=== PATIENT | female | born 2000 | race Caucasian/White ===

== ENCOUNTER 2022-02-04 18:47 | Observation (INO) ==
[2022-02-04] MEDS ORDERED: methylPREDNISolone 125 MG/2 ML VIAL IV STA (19:06)
[2022-02-04] MEDS ORDERED: SODIUM CHLORIDE 0.9% 1000ML 2,000 ML IV ONE (19:06)
[2022-02-04] MEDS ORDERED: FAMOTIDINE 20MG IV PUSH 20 MG/5 ML SYR IV STA (19:06)
[2022-02-04] MEDS ORDERED: diphenhydrAMINE 50 MG/ML VIAL IV STA (19:06)
[2022-02-04] MEDS ORDERED: cefTRIAXone SODIUM 2,000 MG/70 ML BAG IV STA (19:10)
--- NOTE | 2022-02-04 19:11 | Emergency Department Note ---
Impression & Plan Cough, Rash, Fever, Tachycardia ED Provider Note NAME: REANNA SANTOYO AGE: 21 SEX: F : 2000 ARRIVES VIA: Walk-In INFORMANT: Patient ED PROVIDER(S): Jose Alfredo Davis DO CHIEF COMPLAINT: cough, fever and rash HPI: Patient is a 21-year-old female who presents to the ER for cough, rash and fevers of 104. Symptoms started within the past 24 hours. Notes has had a rash under the right arm which has been present for over a week but in the past 24 hours noticed rash of the left breast and entire anterior abdominal wall. Notes it is warm and painful but not itchy. No headache or change in vision. No chest pain or shortness of breath. No nausea, vomiting, or diarrhea. No dysuria, urgency, or frequency. No other exacerbating remitting factors. ROS: See above HPI for pertinent positives & negatives. A total of 10 systems reviewed and were otherwise negative. PAST MEDICAL HISTORY:See Below PAST SURGICAL HISTORY:See Below FAMILY HISTORY:See Below SOCIAL HISTORY:See Below HOME MEDICATIONS:See Below ALLERGIES:See Below VITALS:See Below PHYSICAL EXAMINATION: GENERAL: Sitting up in bed, alert, well appearing, well nourished, no distress, non-toxic EYE EXAM: normal conjunctiva. PERRL and EOM's grossly intact. OROPHARYNX: no exudate, no erythema, lips, buccal mucosa, and tongue normal and mucous membranes are moist NECK: supple, no nuchal rigidity, no adenopathy, non-tender LUNGS: Clear to auscultation. Normal chest wall mechanics HEART: no murmurs, S1 normal and S2 normal ABDOMEN: abdomen soft, non-tender, normo-active bowel sounds, no masses, no rebound or guarding. SKIN: Diffuse erythema which is raised warm and tender on the anterior abdominal chest wall UPPER EXTREMITIES: upper extremities are grossly normal. LOWER EXTREMITIES: No pitting edema. NEURO EXAM: Normal sensorium, cranial nerves II-XII grossly intact, normal speech, no gross weakness of arms, no gross weakness of legs. MEDICAL DECISION MAKING: Patient is a 21-year-old female who transition to a male who presents to the ER for fevers, cough and a rash. Denies any congestion, runny nose, or sore throat. No belly pain, dysuria, urgency, or frequency. Admits to a red warm and tender rash on the abdomen. IV was established blood work was obtained. Patient was febrile and tachycardic. Labs show leukocytosis of 13,000. No sign ificant anemia. BMP with mild hypokalemia 3.1. LFTs were unremarkable. T bili mildly elevated 2.5 but no abdominal pain. Lipase was normal. COVID influenza and RSV were negative. On exam she does have a erythematous warm and tender rash in the abdomen. Initially gave steroids, Benadryl, and Pepcid in case this is allergic. No significant improvement. Did cover with IV Rocephin and Dapto. Patient was given IV fluids. Updated bedside. Discussed with hospitalist for further evaluation as this could be a cellulitis although clinically appears to be much more raised than a typical cellulitis. Triage Nursing notes reviewed. Limited review of prior medical records performed Vital Signs: reviewed and remarkable for tachycardic and febrile Differential diagnosis: Differential diagnosis: Etiologies such as viral syndrome, otitis, pharyngitis, pneumonia, influenza, meningitis, urinary tract infection, sepsis, bacteremia, as well as others were entertained. ER treatment provided: See below Diagnostics interpreted by me: ECG: none Cardiac Monitoring: An order was placed for continuous cardiac monitoring. The monitor shows a rate of 110 with sinus rhythm. Laboratory studies: As stated above and show below. Imaging studies: Portable AP upright 1 view of the chest was unremarkable Consultation(s): Discussed with Carlos Carmichael for further evaluation Procedures: none Past Med/Surg History Medical History Allergic rhinitis Chronic sinusitis Environmental allergies Hx of pancreatitis Idiopathic pancreatitis Moderate persistent asthma Paroxysmal nocturnal dyspnea Surgical History H/O mastectomy History of nasal cauterization History of tonsillectomy and adenoidectomy Hx of wisdom tooth extraction Family History Denies family history of Crohn's disease Colorectal cancer Ulcerative colitis Social History Smoking Status: Current some day smoker Hx Alcohol Use: Yes Hx Substance Use: Yes Prescribed Medications: Former Misuse of Rx Meds Preferred Language: Korean Feels Safe at Home: Yes Gender Identity: Nonbinary Allergies Allergies Allergy/AdvReac Type Severity Reaction Status Date / Time coconut Allergy Intermediate HIVES/ABD Verified 02/04/22 20:28 PAIN grapefruit Allergy Intermediate HIVES/ABD Verified 02/04/22 20:28 PAIN marshall AdvReac Intermediate Vomiting Verified 02/04/22 20:28 Home Meds Home Medications Medication Instructions Recorded Confirmed dextroamphetamine-amphetamine ER 30 mg PO QAM 11/07/19 02/04/22 30 mg 24hr capsule,extend release testosterone cypionate 100 mg/mL 100 mg subcut Q7D 03/11/21 02/04/22 intramuscular oil sertraline 25 mg tablet 50 mg PO DAILY 10/25/21 02/04/22 acetaminophen 500 mg tablet 1,000 mg PO DIRECTED PRN 02/04/22 02/04/22 (Tylenol Extra Strength) PAIN/FEVER ibuprofen 200 mg tablet 400 mg PO DIRECTED PRN 02/04/22 02/04/22 PAIN/FEVER Previous Rx's Medication Instructions Recorded linaclotide 72 mcg capsule 72 mcg PO DAILY #30 caps 10/25/21 (Linzess) pantoprazole 40 mg tablet,delayed 40 mg PO DAILY #30 tabs 10/25/21 release plecanatide 3 mg tablet (Trulance) 3 mg PO DAILY #30 tabs 11/28/21 albuterol sulfate 90 mcg/actuation 2 puff inhalation Q6H PRN Cough 11/29/21 aerosol inhaler (Ventolin HFA) #8.5 grams budesonide-formoterol HFA 80 2 puff inhalation BID #10.2 grams 11/29/21 mcg-4.5 mcg/actuation aerosol inhaler (Symbicort) montelukast 10 mg tablet 10 mg PO DAILY #90 tabs 11/29/21 Results & Data (ED) Vital Signs Vital Signs - 24 hr 02/04/22 18:53 02/04/22 19:21 02/04/22 19:21 Temperature 37.8 C H Temperature Source Temporal Artery Scan Pulse Rate 144 H Pulse Rate [Apical] 128 H Pulse Rhythm [Apical] Regular Respiratory Rate 20 17 Respiratory Depth Normal Blood Pressure 119/64 Blood Pressure [Right Arm] 159/95 H Blood Pressure Mean 82 Blood Pressure Mean [Right Arm] 116 Blood Pressure Position Sitting Pulse Oximetry 99 96 Oxygen Delivery Method Room Air Room Air Room Air Sepsis Recent Fever Within 48 Hours No Sepsis New/Unexplained Change in Mental Status N/A Sepsis Action Taken by Nursing No Action Required 02/04/22 20:00 02/04/22 20:30 Temperature Temperature Source Pulse Rate Pulse Rate [Apical] 108 H 115 H Pulse Rhythm [Apical] Regular Respiratory Rate 20 16 Respiratory Depth Normal Blood Pressure Blood Pressure [Right Arm] 149/85 H 117/88 Blood Pressure Mean Blood Pressure Mean [Right Arm] 106 97 Blood Pressure Position Pulse Oximetry 98 99 Oxygen Delivery Method Room Air Room Air Sepsis Recent Fever Within 48 Hours Sepsis New/Unexplained Change in Mental Status Sepsis Action Taken by Nursing Laboratory Data Result diagrams: 02/04/22 19:15 02/04/22 19:15 Lab Results 02/04/22 02/04/22 02/04/22 Range/Units 19:15 19:15 19:25 WBC 13.33 H (4.8-10.8) K/ul RBC 4.26 (3.93-5.22) M/uL Hgb 12.8 (12.0-16.0) g/dl Hct 35.6 (34.1-44.9) % MCV 83.6 (80.0-100.0) fL MCH 30.0 (25.0-34.0) pg MCHC 36.0 (32.0-36.0) g/dL RDW Std Deviation 38.8 (36.4-46.3) fL RDW Coeff of Charleen 12.8 (11.5-14.5) % Plt Count 251 (130-400) K/uL MPV 8.9 L (9.4-12.3) fL Immature Gran % (Auto) 0.5 % Neut % (Auto) 84.9 % Lymph % (Auto) 8.6 % [place] % (Auto) 5.8 % Eos % (Auto) 0.0 % Baso % (Auto) 0.2 % Neut # (Auto) 11.32 H (1.4-6.5) K/uL Lymph # (Auto) 1.15 L (1.2-3.4) K/uL [place] # (Auto) 0.77 (0.24-0.82) K/uL Eos # (Auto) 0.00 (0-0.50) K/uL Baso # (Auto) 0.03 (0-0.2) K/uL Immature Gran # (Auto) 0.06 H (0.00-0.02) K/uL Sodium 133 L (136-145) mmol/L Potassium 3.1 L (3.5-5.1) mmol/L Chloride 100 (98-107) mmol/L Carbon Dioxide 23 (21-32) mmol/L Anion Gap 10 (3-11) BUN 16 (6-23) mg/dl Creatinine 0.87 (0.6-1.2) mg/dl Est Cr Clr Drug Dosing Not Reportable Est GFR ( Amer) 110.4 ml/min Est GFR (Non-Af Amer) 95.2 ml/min BUN/Creatinine Ratio 18.4 (10-20) Glucose 105 H (70-99(Fasting)) mg/dl Calcium 8.6 (8.5-10.1) mg/dl Total Bilirubin 2.5 H (0.2-1.0) mg/dl AST 11 L (13-39) U/L ALT 16 (7-52) U/L Alkaline Phosphatase 60 (34-104) U/L Troponin I High Sens 4.6 (0-14) pg/ml Total Protein 7.0 (6.0-8.3) gm/dl Albumin 4.3 (3.4-5.0) gm/dl Globulin 2.7 (2.5-4.0) gm/dl Albumin/Globulin Ratio 1.6 (0.9-2) Lipase 9 L (11-82) U/L SARS-CoV-2 (PCR) NEGATIVE (Negative) Influenza Type A (PCR) Negative (Neg) Influenza Type B (PCR) Negative (Neg) RSV (RT-PCR) Negative (Neg) Administered Medications Discontinued Medications Acetaminophen (Acetaminophen 325 Mg Tab) 650 mg PO NOW STA Stop: 02/04/22 20:48 Last Admin: 02/04/22 20:57 Dose: 650 mg Documented By: BS Diphenhydramine HCl (Diphenhydramine 50 Mg/Ml Vial) 50 mg IV NOW STA Stop: 02/04/22 19:07 Last Admin: 02/04/22 19:20 Dose: 50 mg Documented By: EMB Sodium Chloride (Nss 1000ml) 2,000 mls @ 999 mls/hr IV .Q2H1M ONE Stop: 02/04/22 21:06 Last Admin: 02/04/22 19:20 Dose: 999 mls/hr Documented By: EMB Famotidine (Pepcid 20mg Iv Push) 20 mg in 5 mls @ 2.5 mls/min IV NOW STA Stop: 02/04/22 19:07 Last Admin: 02/04/22 19:20 Dose: 2.5 mls/min Documented By: EMB Ceftriaxone Sodium (Rocephin) 2,000 mg in 70 mls @ 140 mls/hr IV NOW STA Stop: 02/04/22 19:39 Last Infusion: 02/04/22 19:58 Dose: 0 mls/hr Documented By: Admin: 02/04/22 19:25 Dose: 140 mls/hr Documented By: EMB Methylprednisolone (Methylprednisolone 125 Mg/2 Ml Vial) 60 mg IV NOW STA Stop: 02/04/22 19:07 Last Admin: 02/04/22 19:20 Dose: 60 mg Documented By: EMB Imaging Data Radiologist's Impression: Chest X-Ray 02/04/22 19:06 XR chest 1V portable CLINICAL HISTORY: Chest pain, nonspecific COMPARISON STUDY: Chest radiograph December 06, 2021. FINDINGS: Lung volumes are normal. Lungs are clear. There is no pneumothorax or pleural effusion. Cardiac size is normal. Mediastinal contours are normal. There is no evidence for pulmonary edema. IMPRESSION: No acute cardiopulmonary findings. ACT 112: Negative or not required by law. Electronically signed by: Reanna Wilkinson M.D. 02/04/2022 8:31 PM Discharge Plan Visit Data Chief Complaint: Fever Stated Complaint: FEVER ED Provider: Jose Alfredo Davis Discharge Problem: Cough, Rash, Fever, Tachycardia Forms Stand Alone Forms: [facility] Prescriptions Prescriptions: No Action budesonide-formoterol [Symbicort] 80-4.5 mcg/actuation HFA aerosol inhaler 2 puff inhalation BID Qty: 10.2 3RF albuterol sulfate [Ventolin HFA] 90 mcg/actuation HFA aerosol inhaler 2 puff inhalation Q6H PRN (Reason: Cough) Qty: 8.5 3RF montelukast 10 mg tablet 10 mg PO DAILY Qty: 90 4RF Trulance 3 mg tablet 3 mg PO DAILY Qty: 30 2RF testosterone cypionate 100 mg/mL oil 100 mg subcut Q7D Rx Instructions: ON HOLD sertraline 25 mg tablet 50 mg PO DAILY pantoprazole 40 mg tablet,delayed release (DR/EC) 40 mg PO DAILY Qty: 30 2RF Linzess 72 mcg capsule 72 mcg PO DAILY Qty: 30 2RF dextroamphetamine-amphetamine 30 mg capsule,extended release 24hr 30 mg PO QAM acetaminophen [Tylenol Extra Strength] 500 mg Tablet 1,000 mg PO DIRECTED PRN (Reason: PAIN/FEVER) ibuprofen 200 mg Tablet 400 mg PO DIRECTED PRN (Reason: PAIN/FEVER) Referrals [facility] [Non-Staff] -
[2022-02-04 19:51] LABS: Basophils # (auto) 0.03 K/uL (0-0.2); Basophils % (auto) 0.2 %; Hematocrit (blood only) 35.6 % (34.1-44.9); Hemoglobin 12.8 g/dl (12.0-16.0); Immature Granulocytes # (auto) 0.06 K/uL (0.00-0.02); Immature Granulocytes % (auto) 0.5 %; Lymphocytes # (auto) 1.15 K/uL (1.2-3.4); Lymphocytes % (auto) 8.6 %; Mean Corpuscular Volume 83.6 fL (80.0-100.0); Mean Platelet Volume 8.9 fL (9.4-12.3); Monocytes # (auto) 0.77 K/uL (0.24-0.82); Monocytes % (auto) 5.8 %; Neutrophils # (auto) 11.32 K/uL (1.4-6.5); Neutrophils % (auto) 84.9 %; Platelet Count 251 K/uL (130-400); RDW Coefficient of Variation 12.8 % (11.5-14.5); RDW Standard Deviation 38.8 fL (36.4-46.3); Red Blood Count 4.26 M/uL (3.93-5.22); White Blood Count 13.33 K/ul (4.8-10.8)
[2022-02-04 20:16] LABS: Alanine Aminotransferase 16 U/L (7-52); Albumin Globulin Ratio 1.6 (0.9-2); Albumin Level 4.3 gm/dl (3.4-5.0); Alkaline Phosphatase 60 U/L (34-104); Anion Gap 10 (3-11); Aspartate Aminotransferase 11 U/L (13-39); BUN Creatinine Ratio 18.4 (10-20); Bilirubin,Total 2.5 mg/dl (0.2-1.0); Blood Urea Nitrogen 16 mg/dl (6-23); Calcium 8.6 mg/dl (8.5-10.1); Carbon Dioxide 23 mmol/L (21-32); Chloride 100 mmol/L (98-107); Est GFR (African American) 110.4 ml/min; Est GFR (Non-African American) 95.2 ml/min; Globulin 2.7 gm/dl (2.5-4.0); Glucose 105 mg/dl (70-99(Fasting)); Lipase 9 U/L (11-82); Potassium 3.1 mmol/L (3.5-5.1); Sodium 133 mmol/L (136-145)
[2022-02-04 20:17] LABS: Troponin I High Sensitivity 4.6 pg/ml (0-14)
[2022-02-04 20:29] LABS: Influenza A virus by PCR Negative (Neg); Influenza B virus by PCR Negative (Neg); RSV by PCR Negative (Neg); SARS CoV2 RNA(COVID-19) Ceph NEGATIVE (Negative)
--- NOTE | 2022-02-04 20:32 | XRay Report ---
XR chest 1V portable CLINICAL HISTORY: Chest pain, nonspecific COMPARISON STUDY: Chest radiograph December 06, 2021. FINDINGS: Lung volumes are normal. Lungs are clear. There is no pneumothorax or pleural effusion. Car diac size is normal. Mediastinal contours are normal. There is no evidence for pulmonary edema. IMPRESSION: No acute cardiopulmonary findings. ACT 112: Negative or not required by law. Electronically signed by: Refugio Wilkinson M.D. 02/04/2022 8:31 PM
[2022-02-04] MEDS ORDERED: DAPTOMYCIN IV SCH (20:45)
[2022-02-04] MEDS ORDERED: ACETAMINOPHEN 325 MG TAB PO STA (20:47)
--- NOTE | 2022-02-04 21:16 | History & Physical Report ---
Date of Service February 04, 2022 Assessment & Plan (1) Rash: Plan: 21-year-old transmale who presented due to rash and fever. Rash Starting in right underarm for about 1 to 2 months with spread to abdomen as of the last week Right underarm with erythema, but does exhibit some scaliness and thickening abdomen appears more urticarial in nature Ultimately believed that he will require biopsy for further differentiation Due to several spots of honey colored crusting will continue daptomycin and ceftriaxone for now MRSA nares ordered and pending, can consider discontinuation of daptomycin if negative Will start famotidine 20 mg twice daily for H2 blockade and Benadryl 50 mg as needed as concern for possible allergic rash remains Admit to [facility] Fever/leukocytosis Symptoms of fever, nausea, fatigue concerning for possible viral infection However, blood cultures drawn and pending from the ED follow results Acetaminophen as needed for fever Zofran as needed for nausea Depression/anxiety Continue home sertraline Asthma/allergic rhinitis Continue home montelukast and Symbicort inhaler Albuterol as needed GERD/constipation Continue home pantoprazole and linaclotide/plecanatide Transitioning male Of note, patient has been off testosterone supplementation since around December due to unavailability of treatment through prior provider Diet: Regular Dispo: [facility] DVT prophylaxis: No chemoprophylaxis due to young age and mobility CODE STATUS: Full (2) Fever: (3) Cough: History of Present Illness Primary Care Provider: NO PCP Refugio Miller is a 21-year-old transmale who presented to the emergency room due to a rash and fever. He states the rash started on his right underarm about a month or so ago. However, as of the past week the rash has been spreading to the abdominal area. It now involves the entire abdomen. The rash is itchy and he states he has scratched at it while sleeping but tries not to when awake. Also states that as of the past week has been feeling very fatigued, unable to move much. Has also had some episodes of nausea. Today developed fever up to 104 F. No known sick contacts. Does state that he has a chronic cough, related to seasonal allergies. No change in the cough. Denies diarrhea, abdominal pain, shortness of breath, chest pain, palpitations, neuro deficits. In the ED was given Benadryl 50 mg and Solu-Medrol 60 mg IV, as well as Pepcid 20 mg IV without much improvement of symptoms. As such, was ordered daptomycin and ceftriaxone subsequently. Acetaminophen was also given for fever and received 1 L NSS bolus. Lab work significant for white count elevation to 13 K, hypokalemia of 3.1, flu/COVID/RSV negative. Allergies Allergy/AdvReac Type Severity Reaction Status Date / Time coconut Allergy Intermediate HIVES/ABD Verified 02/04/22 20:28 PAIN grapefruit Allergy Intermediate HIVES/ABD Verified 02/04/22 20:28 PAIN marshall AdvReac Intermediate Vomiting Verified 02/04/22 20:28 Home Medications Medication Instructions Recorded Confirmed Type dextroamphetamine-amphetamine ER 30 mg PO QAM 11/07/19 02/04/22 History 30 mg 24hr capsule,extend release testosterone cypionate 100 mg/mL 100 mg subcut Q7D 03/11/21 02/04/22 History intramuscular oil linaclotide 72 mcg capsule 72 mcg PO DAILY #30 caps 10/25/21 02/04/22 Rx (Linzess) pantoprazole 40 mg tablet,delayed 40 mg PO DAILY #30 tabs 10/25/21 02/04/22 Rx release sertraline 25 mg tablet 50 mg PO DAILY 10/25/21 02/04/22 History plecanatide 3 mg tablet (Trulance) 3 mg PO DAILY #30 tabs 11/28/21 02/04/22 Rx albuterol sulfate 90 mcg/actuation 2 puff inhalation Q6H PRN Cough 11/29/21 02/04/22 Rx aerosol inhaler (Ventolin HFA) #8.5 grams budesonide-formoterol HFA 80 2 puff inhalation BID #10.2 grams 11/29/21 02/04/22 Rx mcg-4.5 mcg/actuation aerosol inhaler (Symbicort) montelukast 10 mg tablet 10 mg PO DAILY #90 tabs 11/29/21 02/04/22 Rx acetaminophen 500 mg tablet 1,000 mg PO DIRECTED PRN 02/04/22 02/04/22 History (Tylenol Extra Strength) PAIN/FEVER ibuprofen 200 mg tablet 400 mg PO DIRECTED PRN 02/04/22 02/04/22 History PAIN/FEVER Past Med/Surg History Medical History Allergic rhinitis Chronic sinusitis Environmental allergies Hx of pancreatitis Idiopathic pancreatitis Moderate persistent asthma Paroxysmal nocturnal dyspnea Surgical History H/O mastectomy History of nasal cauterization History of tonsillectomy and adenoidectomy Hx of wisdom tooth extraction Family History Denies family history of Crohn's disease Colorectal cancer Ulcerative colitis Social History Smoking Status: Never smoker Hx Alcohol Use: Yes Alcohol type: beer, wine and hard liquor Hx Substance Use: No Preferred Language: Lao Turbine Attendant Required: No Beliefs That Will Affect Care: None Current Living Situation: Other Current Living Situation Comment: live with roommates at [facility] Other Information That Helps Us Care for You: No Feels Safe at Home: Yes Safety Concerns: Feels Safe At This Time Gender Identity: Nonbinary Assistive Devices: Glasses Review of Systems Review of Systems: Per HPI Physical Exam Physical Exam: GENERAL: A&Ox3. NAD. HEENT: PERRL, EOMI. Moist mucous membranes. NECK: No JVD. No lymphadenopathy. CHEST/LUNGS: CTAB A/P. No crackles, wheezes, rales, rhonchi. HEART: RRR. No m/g/r. No carotid bruits. ABDOMEN: NT/ND, soft. BS+ x4 EXTREMITIES: No cyanosis, no clubbing, no edema SKIN: Erythematous, confluent rash along entire abdominal wall. Similar appearing rash on right underarm with several yellow, crusty patches. PSYCHIATRIC: Euthymic affect, no SI, no pressured speech, no hallucinations NEUROLOGIC: No FND. CN II-XII grossly intact. Results & Data Results & Data ([facility]) Vital Signs (Past 12 Hours) Vital Signs Temp Pulse Pulse Resp BP BP Pulse Ox 02/04/22 20:30 115 H 16 117/88 99 02/04/22 20:00 108 H 20 149/85 H 98 02/04/22 19:21 02/04/22 19:21 128 H 17 159/95 H 96 02/04/22 18:53 37.8 C H 144 H 20 119/64 99 O2 Del Method 02/04/22 20:30 Room Air 02/04/22 20:00 Room Air 02/04/22 19:21 Room Air 02/04/22 19:21 Room Air 02/04/22 18:53 Room Air Supervising Physician Co-Signing Physician Notes Attending addendum: I have physically seen this patient, have supervised the medical residents activities, and agree with the H&P unless as otherwise noted. Assessment and Plan: Rash of uncertain etiology- Extending from right axilla worse more likely secondary bacterial infection is extending across abdomen across midline nonvesicular where it is looking more macular and coalesced Patient is seen dermatology recently, but no punch biopsy has been performed Received daptomycin and ceftriaxone IV from the ED, and will be continued for now, to deal with secondary infection, chronic Axilla looks similar to hidradenitis suppurativa, so may consider doxycycline as a discharge medication He likely is causing secondary irritation by scratching, consciously or subconsciously Will need to follow-up with dermatology, and likely ultimately need a punch biopsy He did receive Solu-Medrol 60 mg IV and Benadryl 50 mg IV in the ED due to concerns regarding possible allergy component. Would hold further steroids, but could use Benadryl Remaining orders and notations as noted Resident Activity Tracking Resident Involvement: Resident Care Provided Care Provided: Adult [facility] Medicine
[2022-02-04] MEDS ORDERED: POTASSIUM CHLORIDE CRTAB 20 MEQ TABCR PO STA (22:57)
[2022-02-04] MEDS ORDERED: POLYETHYLENE (MIRALAX) 17 GM PACK PO PRN (22:57)
[2022-02-04] MEDS ORDERED: ALBUTEROL HFA 8 GM INHALER INH PRN (22:57)
[2022-02-04] MEDS: FAMOTIDINE 20 MG TAB PO SCH (23:25)
[2022-02-05] MEDS: ACETAMINOPHEN 500 MG TAB PO PRN ×2 (00:03→20:28)
[2022-02-05] MEDS: diphenhydrAMINE Capsule 25 MG CAP PO PRN ×3 (00:03→11:28)
[2022-02-05] MEDS: IBUPROFEN 600 MG TAB PO PRN ×2 (05:44→15:07)
--- NOTE | 2022-02-05 07:09 | Hospitalist Progress Note ---
Date of Service February 05, 2022 Assessment & Plan (1) Rash: Plan: 21-year-old male who presented due to rash and fever. Rash Starting in right underarm for about 1 to 2 months with spread to abdomen as of the last week Right underarm with erythema, but does exhibit some scaliness and thickening abdomen appears more urticarial in nature Ultimately believe that he will require biopsy for further differentiation. Patient has outpatient dermatology appointment next 02/13/2022. Due to several spots of honey colored crusting will continue daptomycin and ceftriaxone for now. MRSA nares negative. Discontinued daptomycin Etiology unclear. Rash could be fungal, allergic, bacterial, hidradenitis suppurativa, or tickborne. * Famotidine 20 mg twice daily for H2 blockade; Benadryl 50 mg as needed * IV antibiotics: P.o. doxycycline, IV ceftriaxone * Lyme, Anaplasma, rickettsial labs pending * Lotrisone cream for rash, pruritus; Fever/leukocytosis Symptoms of fever, nausea, fatigue concerning for possible viral infection However, blood cultures drawn and pending from the ED follow results * Acetaminophen as needed for fever * Antibiotic therapy as above * Zofran as needed for nausea * Trend CBC Depression/anxiety * Home sertraline Asthma/allergic rhinitis * Home montelukast and Symbicort inhaler * Albuterol as needed GERD/constipation * Continue home pantoprazole and linaclotide/plecanatide Transitioning male * Of note, patient has been off testosterone supplementation since around due to unavailability of treatment through prior provider Diet: Regular Dispo: MedSurg DVT prophylaxis: No chemoprophylaxis due to young age and mobility CODE STATUS: Full (2) Fever: (3) Cough: Admission and Anticipated Discharge Date Admission Date: February 04, 2022 Subjective No acute events overnight. Patient awake in bed resting comfortably on arrival. Mom was present via cell phone (Regalos Y Amigos). Corroborated H&P, save for onset (2 weeks). This morning, patient reports mild right flank pain, itching. Denies wheezing, shortness of breath, fatigue, joint pain, fever, night sweats. 21-year-old male with history of depression, ADHD who presented with right underarm rash x2 weeks. Rash only recently spread past the underarm to the abdomen. Patient reported fever of 104. Patient reported itching and weeping at underarm. Rash was previously painless until recently when it spread to abdomen, specifically on right flank. No prior history. Patient reports they usually go outdoors, but not in the past 2 months. No prior tick exposure. Patient denies new lotions, soaps, clothing, or foods. Review of Systems Review of Systems: All systems reviewed & are unremarkable except as noted in HPI & below Physical Exam Physical Exam: General: No acute distress HEENT: PERRLA. Normal conjunctiva, anicteric sclera. Oropharynx normal. Respiratory: Normal respiratory effort, CTA BL. Cardiovascular: RRR without murmurs, gallops, or rubs. No edema. Skin: Mildly erythematous, raised, flat, blanching, indurated rash in right underarm. No flaking, pustules or vesicles. Faint odor emanating from underarm rash. Diffuse, contiguous blanching rash across abdomen bilaterally at the level of umbilicus. 2 symmetric appearing circular, macular rash (each spanning ~5 to 6 cm in diameter) observed at the medial thighs bilaterally. GI: Soft abdomen with normal bowel sounds heard on auscultation. Nontender x4 quadrants Neuro: Alert and oriented x3. Results & Data Results & Data ([facility]) Vital Signs (Past 12 Hours) Vital Signs Temp Pulse Pulse Resp BP BP Pulse Ox 02/04/22 23:48 88 02/04/22 23:00 37.2 C 106 H 16 113/70 97 02/04/22 22:50 37.2 C 106 H 18 113/70 97 02/04/22 22:00 108 H 16 99 02/04/22 20:30 115 H 16 117/88 99 02/04/22 20:00 108 H 20 149/85 H 98 02/04/22 19:21 02/04/22 19:21 128 H 17 159/95 H 96 O2 Del Method 02/04/22 23:48 02/04/22 23:00 Room Air 02/04/22 22:50 Room Air 02/04/22 22:00 Room Air 02/04/22 20:30 Room Air 02/04/22 20:00 Room Air 02/04/22 19:21 Room Air 02/04/22 19:21 Room Air Resident Activity Tracking Resident Involvement: Resident Care Provided Care Provided: Adult [facility]
[2022-02-05 08:16] LABS: Basophils # (auto) 0.02 K/uL (0-0.2); Basophils % (auto) 0.2 %; Hematocrit (blood only) 31.9 % (34.1-44.9); Hemoglobin 11.4 g/dl (12.0-16.0); Immature Granulocytes # (auto) 0.08 K/uL (0.00-0.02); Immature Granulocytes % (auto) 0.7 %; Lymphocytes # (auto) 0.97 K/uL (1.2-3.4); Mean Corpuscular Hemoglobin 30.2 pg (25.0-34.0); Mean Corpuscular Hgb Conc 35.7 g/dL (32.0-36.0); Mean Corpuscular Volume 84.6 fL (80.0-100.0); Mean Platelet Volume 9.1 fL (9.4-12.3); Monocytes # (auto) 0.77 K/uL (0.24-0.82); Monocytes % (auto) 6.3 %; Neutrophils # (auto) 10.36 K/uL (1.4-6.5); Neutrophils % (auto) 84.8 %; Platelet Count 232 K/uL (130-400); RDW Coefficient of Variation 12.9 % (11.5-14.5); RDW Standard Deviation 39.8 fL (36.4-46.3); Red Blood Count 3.77 M/uL (3.93-5.22)
[2022-02-05] MEDS: FLUTICASONE/VILANTEROL 100/25MCG 14 PUFFS/INHALER INH SCH (08:26)
[2022-02-05] MEDS: FAMOTIDINE 20 MG TAB PO SCH ×2 (08:26→20:20)
[2022-02-05] MEDS: PANTOprazole 40 MG TAB PO SCH (08:27)
[2022-02-05] MEDS: DEXTROAMPHETAMINE/AMPHETAMINE ER 10 MG CAP PO SCH (08:27)
[2022-02-05] MEDS: SERTRALINE HCL 50 MG TABLET PO SCH (08:27)
[2022-02-05] MEDS: linaCLOtide 72 MCG CAPSULE PO SCH (08:27)
[2022-02-05 08:44] LABS: Calcium 8.3 mg/dl (8.5-10.1); Creatinine Clr Calc Pharmacy 189.5 ml/min; Est GFR (African American) 149.4 ml/min; Est GFR (Non-African American) 128.9 ml/min; Potassium 4.4 mmol/L (3.5-5.1)
--- NOTE | 2022-02-05 15:29 | Billing Data ---
Date of Service February 05, 2022 Coding Level of Care Code 64269 Subseq Hosp Care Lvl 3
--- NOTE | 2022-02-05 15:29 | Communication Note ---
Date of Service: February 05, 2022 The patient was seen and examined by me. Case discussed with resident physician. Agree with assessment and plan. This rash may be a Fiorella dermatitis and will be treated as such with oral Diflucan and topical Lotrisone. The rash blanches with pressure and is somewhat pruritic which is not in favor of a vasculitic process. Mild hypokalemia has been corrected.
[2022-02-05] MEDS: FLUCONAZOLE 100 MG TAB PO SCH (15:47)
[2022-02-05 17:49] LABS: Lyme Ab IgG w/WB Rflx Negative (Negative); Lyme Ab IgM w/WB Rflx Negative (Negative)
[2022-02-05] MEDS: ONDANSETRON INJ 2 MG/ML 2 ML VIAL IV PRN (18:07)
[2022-02-05] MEDS ORDERED: cefTRIAXone SODIUM 2,000 MG in DEXTROSE 5% 50 ML IV SCH (20:00)
[2022-02-05] MEDS: CLOTRIMAZOLE/BETAMETHASONE CR 15 GM TUBE EXT SCH (20:19)
[2022-02-05] MEDS: DOXYCYCLINE HYCLATE 100 MG CAP PO SCH (20:20)
--- NOTE | 2022-02-05 20:20 | Billing Data ---
Date of Service February 05, 2022 Coding Level of Care Code INT OBSERVATION CARE 50M LVL 2
[2022-02-05] MEDS ORDERED: MONTELUKAST SODIUM 10 MG TABLET PO SCH (21:00)
[2022-02-05] MEDS ORDERED: PROCHLORPERAZINE 5 MG in SYRINGE 4 ML IV ONE (21:45)
[2022-02-05] MEDS ORDERED: DAPTOmycin 500 MG in SYRINGE 0 ML IV SCH (22:00)
[2022-02-05] MEDS ORDERED: ALUMINUM/MAGNESIUM SUSP 30 ML UDC PO PRN (22:32)
[2022-02-05] MEDS ORDERED: LORazepam 0.5 MG in SYRINGE 0 ML IV STA (22:42)
[2022-02-06] MEDS: diphenhydrAMINE Capsule 25 MG CAP PO PRN (02:41)
[2022-02-06] MEDS: IBUPROFEN 600 MG TAB PO PRN (02:41)
--- NOTE | 2022-02-06 06:08 | Electrocardiogram Report ---
Test Reason : Blood Pressure : / mmHG Vent. Rate : 136 BPM Atrial Rate : 136 BPM P-R Int : 128 ms QRS Dur : 086 ms QT Int : 296 ms P-R-T Axes : 000 146 -28 degrees QTc Int : 445 ms Sinus tachycardia Right axis deviation Nonspecific T wave abnormality Abnormal ECG When compared with ECG of 07-NOV-2019 17:50, QRS axis Shifted right Confirmed by Minh Mueller ([id number]) on 02/06/2022 6:07:55 AM Referred By: REFERRED SELF Confirmed By:Minh Mueller
[2022-02-06 07:05] LABS: Basophils # (auto) 0.06 K/uL (0-0.2); Basophils % (auto) 0.6 %; Eosinophils # (auto) 0.33 K/uL (0-0.50); Eosinophils % (auto) 3.1 %; Hematocrit (blood only) 30.3 % (34.1-44.9); Hemoglobin 10.6 g/dl (12.0-16.0); Immature Granulocytes # (auto) 0.04 K/uL (0.00-0.02); Immature Granulocytes % (auto) 0.4 %; Lymphocytes # (auto) 2.91 K/uL (1.2-3.4); Lymphocytes % (auto) 26.9 %; Mean Corpuscular Hemoglobin 30.1 pg (25.0-34.0); Mean Corpuscular Volume 86.1 fL (80.0-100.0); Mean Platelet Volume 9.4 fL (9.4-12.3); Monocytes # (auto) 0.83 K/uL (0.24-0.82); Monocytes % (auto) 7.7 %; Neutrophils # (auto) 6.64 K/uL (1.4-6.5); Neutrophils % (auto) 61.3 %; Platelet Count 246 K/uL (130-400); RDW Coefficient of Variation 13.4 % (11.5-14.5); RDW Standard Deviation 41.6 fL (36.4-46.3); Red Blood Count 3.52 M/uL (3.93-5.22); White Blood Count 10.81 K/ul (4.8-10.8)
[2022-02-06 07:25] LABS: BUN Creatinine Ratio 19.5 (10-20); Calcium 8.5 mg/dl (8.5-10.1); Creatinine Clr Calc Pharmacy 152.6 ml/min; Est GFR (African American) 127.9 ml/min; Est GFR (Non-African American) 110.4 ml/min; Potassium 3.8 mmol/L (3.5-5.1)
[2022-02-06] MEDS: DEXTROAMPHETAMINE/AMPHETAMINE ER 10 MG CAP PO SCH (09:39)
[2022-02-06] MEDS: CLOTRIMAZOLE/BETAMETHASONE CR 15 GM TUBE EXT SCH ×2 (09:40→14:37)
[2022-02-06] MEDS: DOXYCYCLINE HYCLATE 100 MG CAP PO SCH (09:40)
[2022-02-06] MEDS: FLUCONAZOLE 100 MG TAB PO SCH (09:40)
[2022-02-06] MEDS: FLUTICASONE/VILANTEROL 100/25MCG 14 PUFFS/INHALER INH SCH (09:41)
[2022-02-06] MEDS: PANTOprazole 40 MG TAB PO SCH (09:41)
[2022-02-06] MEDS: FAMOTIDINE 20 MG TAB PO SCH (09:41)
[2022-02-06] MEDS: linaCLOtide 72 MCG CAPSULE PO SCH (09:41)
[2022-02-06] MEDS: SERTRALINE HCL 50 MG TABLET PO SCH (09:42)
[2022-02-06] MEDS: ACETAMINOPHEN 500 MG TAB PO PRN (09:57)
[2022-02-06] MEDS: ONDANSETRON INJ 2 MG/ML 2 ML VIAL IV PRN ×2 (09:57→15:34)
[2022-02-06] MEDS ORDERED: FLUCONAZOLE 50 MG TAB PO ONE (10:45)
--- NOTE | 2022-02-06 13:19 | Hospitalist Progress Note ---
Date of Service February 06, 2022 Assessment & Plan (1) Rash: Plan: 21-year-old male who presented due to rash and fever. Rash Starting in right underarm for about 1 to 2 months with spread to abdomen as of the last week Right underarm with erythema, but does exhibit some scaliness and thickening abdomen appears more urticarial in nature Ultimately believe that he will require biopsy for further differentiation. Patient has outpatient dermatology appointment next 02/13/2022. Contacted Shiv Diaz outpatient vocational trainer, who agreed to see patient on inpatient basis. Appreciate recs: MRSA nares negative. Discontinued daptomycin Etiology unclear. Rash could be fungal, allergic, bacterial, hidradenitis suppurativa, or tickborne. * Famotidine 20 mg twice daily for H2 blockade; Benadryl 50 mg as needed * IV antibiotics: IV ceftriaxone * Lyme, Anaplasma, rickettsial labs pending * Lotrisone cream for rash, pruritus; administered 1 dose of Diflucan 150 mg (once weekly for 24 weeks, per guidelines). Fever/leukocytosis Symptoms of fever, nausea, fatigue concerning for possible viral infection However, blood cultures drawn and pending from the ED follow results * Acetaminophen as needed for fever * Antibiotic therapy as above * Zofran as needed for nausea * Trend CBC Depression/anxiety * Home sertraline Asthma/allergic rhinitis * Home montelukast and Symbicort inhaler * Albuterol as needed GERD/constipation * Continue home pantoprazole and linaclotide/plecanatide Transitioning male * Of note, patient has been off testosterone supplementation since around December due to unavailability of treatment through prior provider Diet: Regular Dispo: MedSurg DVT prophylaxis: No chemoprophylaxis due to young age and mobility CODE STATUS: Full (2) Fever: (3) Cough: Admission and Anticipated Discharge Date Admission Date: February 04, 2022 Results & Data Results & Data ([facility]) Vital Signs (Past 12 Hours) Vital Signs Temp Pulse Resp BP Pulse Ox O2 Del Method 02/06/22 11:19 97 H 16 133/85 99 Room Air 02/06/22 07:10 36.5 C 90 16 114/79 99 Room Air
--- NOTE | 2022-02-06 13:30 | Discharge Summary ---
Date of Service February 06, 2022 Admission HPI Per Admitting Provider Refugio Miller is a 21-year-old transmale who presented to the emergency room due to a rash and fever. He states the rash started on his right underarm about a month or so ago. However, as of the past week the rash has been spreading to the abdominal area. It now involves the entire abdomen. The rash is itchy and he states he has scratched at it while sleeping but tries not to when awake. Also states that as of the past week has been feeling very fatigued, unable to move much. Has also had some episodes of nausea. Today developed fever up to 104 F. No known sick contacts. Does state that he has a chronic cough, related to seasonal allergies. No change in the cough. Denies diarrhea, abdominal pain, shortness of breath, chest pain, palpitations, neuro deficits. In the ED was given Benadryl 50 mg and Solu-Medrol 60 mg IV, as well as Pepcid 20 mg IV without much improvement of symptoms. As such, was ordered daptomycin and ceftriaxone subsequently. Acetaminophen was also given for fever and received 1 L NSS bolus. Lab work significant for white count elevation to 13 K, hypokalemia of 3.1, flu/COVID/RSV negative. Admission Exam Per Admitting Provider GENERAL: A&Ox3. NAD. HEENT: PERRL, EOMI. Moist mucous membranes. NECK: No JVD. No lymphadenopathy. CHEST/LUNGS: CTAB A/P. No crackles, wheezes, rales, rhonchi. HEART: RRR. No m/g/r. No carotid bruits. ABDOMEN: NT/ND, soft. BS+ x4 EXTREMITIES: No cyanosis, no clubbing, no edema SKIN: Erythematous, confluent rash along entire abdominal wall. Similar appearing rash on right underarm with several yellow, crusty patches. PSYCHIATRIC: Euthymic affect, no SI, no pressured speech, no hallucinations NEUROLOGIC: No FND. CN II-XII grossly intact. Principal Diagnosis Disseminated rash Discharge Exam General: No acute distress HEENT: PERRLA. Normal conjunctiva, anicteric sclera. Oropharynx normal. Respiratory: Normal respiratory effort, CTA BL. Cardiovascular: RRR without murmurs, gallops, or rubs. No edema. Skin: Erythematous, raised, flat, blanching, indurated maculopapular rash in right underarm. No flaking, pustules or vesicles. Faint odor emanating from underarm rash. Diffuse, contiguous blanching rash across abdomen bilaterally at the level of umbilicus and below. 2 symmetric appearing circular, macular rash (each spanning ~5 to 6 cm in diameter) with some degree of central clearing observed at the medial thighs bilaterally. GI: Soft abdomen with normal bowel sounds heard on auscultation. Nontender x4 quadrants Neuro: Alert and oriented x3. Discharge Data Allergies Allergy/AdvReac Type Severity Reaction Status Date / Time coconut Allergy Intermediate HIVES/ABD Verified 02/04/22 20:28 PAIN grapefruit Allergy Intermediate HIVES/ABD Verified 02/04/22 20:28 PAIN marshall AdvReac Intermediate Vomiting Verified 02/04/22 20:28 Consultations 02/04/22 21:53 ED Decision to Admit Stat Hospital Course (1) Rash: 21-year-old male who presented due to disseminated rash and new onset fever x2 weeks of rash originating from right axilla. Now stable on empiric a ntimicrobial, antifungal therapy, and awaiting discharge to outpatient dermatology follow-up. Rash Starting in right underarm for about 1 to 2 weeks with recent spread to a bdomen, fever over the last week. Right underarm with erythema, but does exhibit some scaliness and thickening abdomen appears more urticarial in nature Etiology unclear. Differential etiology includes fungal, allergic, bacterial, hidradenitis suppurativa, or tickborne. MRSA nares negative. - Lyme PCR - neg. Anaplasma, rickettsial labs pending. - In the ED - received broad spectrum abx and IV steroids - dapto/rocephin and IV solumedrol 60mgs. Lotrisone cream for rash, pruritus. - Received Diflucan 150 mg x 1 dose (once weekly x2 to 4 weeks, per guidelines). d/kristina on discharge. - Doxycycline initiated- d/kristina on discharged with neg lyme test. * Home on p.o. cefdinir (total 10-day course) * Oral prednisone taper x12 days ordered as follows: 40 mg daily x3 days, then 30 mg daily x3 days, then 20 mg daily x3 days, then 10 mg daily x3 days. Then STOP. * Outpatient derm follow up. Fever/leukocytosis Symptoms of fever, nausea, fatigue concerning for possible viral infection However, blood cultures drawn and pending from the ED no growth after 48 hours. WBC improved over hospital stay. * Antibiotics as above. Depression/anxiety * Home sertraline Asthma/allergic rhinitis * Home montelukast and Symbicort inhaler * Albuterol as needed GERD/constipation * Continue home pantoprazole and linaclotide/plecanatide (2) Fever: (3) Cough: Total Time Total Time Spent Total Time Spent (In Minutes): 30 Discharge Plan Discharge Items Patient Disposition: Home - Self-Care Reason For Visit: RASH/FEVER Discharge Diagnosis: Disseminated rash Activity: Per Instructions section Non-emergency contact: Primary Care Provider Call non-emergency contact if: you have any medication questions, your symptoms worsen and your temperature is above 101 Follow-up/Referrals: Nathan Archibald MD [Resident] - 02/10/22 9:05 am (APPT WITH DR GARCIA) PCP,NO [Primary Care Provider] - Diet: Regular Addtl Attending Provider Instructions: Dear Refugio, You were brought to the hospital because of worsening underarm rash of 2 weeks duration and a new high-grade fever. You received a dose of IV steroids and antibiotics each (daptomycin, ceftriaxone) in the emergency room. You were then admitted to the hospital for further evaluation for further management. After our initial evaluation and testing, we believe that you can be safely discharged home. As mentioned earlier, we are including your hospital course/management as part of your discharge instructions to bring to your dermatology appointment. Medications We are sending you home on 2 medications. Please take as instructed, unless otherwise instructed by your outpatient physician/wind turbine mechanical engineer. * An antibiotic called cefdinir. Take cefdinir 300 mg 1 tablet twice daily for 9 days. * A steroid called prednisone. Take prednisone 10 mg according to this schedule for 12 days: -Take prednisone 40 mg (4 tablets) daily for 3 days. Then -Take prednisone 30 mg (3 tablets) daily for 3 days. Then -Take prednisone 20 mg (2 tablets) daily for 3 days. Then -Take prednisone 10 mg (1 tablet) daily for 3 days. Then STOP. You may continue taking your other home medications as instructed. We made no changes to those medicines. Rash Starting in right underarm for about 1 to 2 weeks with recent spread to abdomen, fever over the last week. Right underarm with erythema, but does exhibit some scaliness and thickening abdomen appears more urticarial in nature No dermatology consult for inpatient evaluation, skin biopsy. Outpatient dermatology appointment tentatively scheduled by mom for next 02/13/2022. Etiology unclear. Differential etiology includes fungal, allergic, bacterial, hidradenitis suppurativa, or tickborne. Outpatient [facility] wind turbine mechanical engineer contacted. Agreed to see patient in hospital. Appreciate recs MRSA nares negative. Discontinued daptomycin. Initiated doxycycline pending Lyme PCR results. Lyme PCR negative. Stopped doxycycline. * Famotidine 20 mg twice daily for H2 blockade; Benadryl 50 mg as needed * IV antibiotics:IV ceftriaxone. Converted IV ceftriaxone to p.o. cefdinir (total 10-day course) * Anaplasma, rickettsial labs pending * Lotrisone cream for rash, pruritus; administered 1 dose of Diflucan 150 mg (once weekly x24 weeks, per guidelines). Defer remaining course in light of pending dermatology appointment. Fever/leukocytosis Symptoms of fever, nausea, fatigue concerning for possible viral infection However, blood cultures drawn and pending from the ED no growth after 48 hours. * Acetaminophen as needed for fever * Antibiotic therapy as above * Zofran as needed for nausea * Trend CBC Depression/anxiety * Home sertraline Asthma/allergic rhinitis * Home montelukast and Symbicort inhaler * Albuterol as needed GERD/constipation * Continue home pantoprazole and linaclotide/plecanatide Pending Studies at Discharge: No Stand-Alone Forms: My [facility], Work/School Release, Smoking Cessation Medications and DC Order Prescriptions: New cefdinir 300 mg capsule 300 mg PO BID 9 Days Qty: 18 0RF prednisone 10 mg tablet 10 mg PO DAILY Qty: 30 0RF Rx Instructions: To be taken as follows: -40 mg (4 tablets) daily x3 days. Then -30 mg (3 tablets) daily x3 days. Then -20 mg (2 tablets) daily x3 days. Then -10 mg (1 tablet) daily x3 days. Then stop Continued budesonide-formoterol [Symbicort] 80-4.5 mcg/actuation HFA aerosol inhaler 2 puff inhalation BID Qty: 10.2 3RF albuterol sulfate [Ventolin HFA] 90 mcg/actuation HFA aerosol inhaler 2 puff inhalation Q6H PRN (Reason: Cough) Qty: 8.5 3RF montelukast 10 mg tablet 10 mg PO DAILY Qty: 90 4RF Trulance 3 mg tablet 3 mg PO DAILY Qty: 30 2RF testosterone cypionate 100 mg/mL oil 100 mg subcut Q7D Rx Instructions: ON HOLD sertraline 25 mg tablet 50 mg PO DAILY pantoprazole 40 mg tablet,delayed release (DR/EC) 40 mg PO DAILY Qty: 30 2RF Linzess 72 mcg capsule 72 mcg PO DAILY Qty: 30 2RF dextroamphetamine-amphetamine 30 mg capsule,extended release 24hr 30 mg PO QAM acetaminophen [Tylenol Extra Strength] 500 mg Tablet 1,000 mg PO DIRECTED PRN (Reason: PAIN/FEVER) ibuprofen 200 mg Tablet 400 mg PO DIRECTED PRN (Reason: PAIN/FEVER) Discharge Orders: Discharge Order (Routine); Ordered 02/06/22 Ordered By: Nathan Archibald Admission Data Admit Date/Time: 02/04/22 21:51 Attending Provider: Sheila Bullock Admit Provider: Carlos Carmichael Primary Care Provider: PCP,NO Other Providers: Carlos Carmichael Other Interventions: Discharge Summary Assessment (RN) Last Done: 02/06/22 14:45 Supervising Physician Co-Signing Physician Notes Resident Physician Supervision Note: I independently interviewed and examined the patient and verified the collado history and physical, reviewed labs and image studies and agree with resident findings and care plan. Resident Activity Tracking Resident Involvement: Resident Care Provided Care Provided: Adult Hospital Medicine
[2022-02-10 22:10] LABS: Q Fever IgG, Phase I NEGATIVE; Q Fever Phase I IgM Antibody NEGATIVE; Q Fever Phase II IgG Antibody NEGATIVE; Q Fever Phase II IgM Antibody NEGATIVE; R. typhi IgG Ab NOT DETECTED; R. typhi IgM Ab NOT DETECTED; RMSF IgG Ab NOT DETECTED; RMSF IgM Ab NOT DETECTED
== END 2022-02-06 15:56 | disposition home or self-care (01) ==
LOC: ED 18:47 → INTOOBSV 21:51 → 3E 21:51 → SUATTDRO 21:51 → 3E 22:40